=== PATIENT | male | born 1940 | race Caucasian/White ===

== ENCOUNTER 2016-06-29 08:42 | Day surgery (SDC) | payer MEDICARE, OTHER ==
[2016-06-29] VITALS (13 sets, daily range): BP systolic 114–143; BP diastolic 50–84
[~2016-06-29] VITALS: Ht 182.9 cm; Wt 86.0 kg
[~2016-06-29 08:42] MED LIST: ACETAMINOPHEN 500 MG TAB (TYLENOL) PO SCH; LACTATED RINGERS 1,000 ML IV SCH; SODIUM CHLORIDE FLUSH 3 ML SYR IV SCH; ceFAZolin 2,000 MG in SODIUM CHLORIDE VIAL (PF) 20 ML IV SCH; oxyCODONE IMMEDIATE RELEASE 5 MG (OXYIR) TAB PO SCH
[2016-06-29] MEDS ORDERED: BUPIVACAINE/EPINEPHRINE 0.25%-1:200,000 (MARCAINE) 30 ML VIAL INJ ONE (09:00)
[2016-06-29] MEDS ORDERED: SCOPOLAMINE 1.5 MG (TRANSDERM-SCOP) PATCH TD ONE (09:00)
[2016-06-29] MEDS ORDERED: ROPIVACAINE 0.2% 100 ML ONE (09:00)
[2016-06-29] MEDS ORDERED: LIDOCAINE/EPINEPHRINE 1% 1:100,000 (XYLOCAINE) 30 ML VIAL INJ ONE (09:00)
[2016-06-29] MEDS ORDERED: PROPOFOL 20 ML IV ONE ×2 (09:17)
[2016-06-29] MEDS ORDERED: MIDAZOLAM 2 MG/2 ML (VERSED) VIAL ONE (09:17)
[2016-06-29] MEDS ORDERED: ALFENTANIL 500 MCG/ML (ALFENTA) 5 ML AMP IV ONE ×2 (09:17)
[2016-06-29] MEDS ORDERED: diphenhydrAMINE 50 MG/ML INJ (BENADRYL) ONE (09:56)
[2016-06-29] MEDS ORDERED: METOCLOPRAMIDE 10 MG/2 ML (REGLAN) VIAL ONE (09:56)
[2016-06-29] MEDS ORDERED: ONDANSETRON 2 MG/ML (Z0FRAN) 2 ML VIAL ONE (09:56)
[2016-06-29] MEDS ORDERED: KETOROLAC 60 MG/2 ML (TORADOL) VIAL IM ONE (11:01)
[2016-06-29] MEDS ORDERED: ONDANSETRON 2 MG/ML (Z0FRAN) 2 ML VIAL IV PRN (13:09)
== END 2016-06-29 14:25 | disposition home or self-care (01) ==
LOC: ASC 08:42
PROVIDERS: ATTEND Surgery
DX: K40.90 Unilateral inguinal hernia, without obstruction or gangrene, not specified as recurrent (principal); I10 Essential (primary) hypertension; K21.9 Gastro-esophageal reflux disease without esophagitis; E78.5 Hyperlipidemia, unspecified
CPT/HCPCS: 36415; 49505; 84132; A4649; A9270; C1781; J0690; J1200; J1885; J2250; J2765; J2795; J7050; J7120